=== PATIENT | male | born 1975 | race Caucasian/White ===

== ENCOUNTER → 2018-10-05 | Outpatient (REF) | payer OTHER, MEDICAID | LOC: M SMT 18:57 | PROVIDERS: ATTEND Specialist | DX: Z30.09 Encounter for other general counseling and advice on contraception (principal) ==

== ENCOUNTER → 2019-02-08 | Outpatient (REF) | payer OTHER, MEDICAID ==
[2019-02-08 13:31] LABS: SEMEN APPEARANCE OPAQUE (OPAQUE); SEMEN VISCOSITY VISCOUS (LIQUID); SEMEN VOLUME 3.8 ml (2.0-5.0); SEMEN pH 8.5 (7.0-8.0)
[2019-02-08 13:32] LABS: WBC CONCENTRATION <=1 M/ml (<=1 M/ml)
== END ==
LOC: M SMT 12:07
PROVIDERS: ATTEND Specialist
DX: Z30.09 Encounter for other general counseling and advice on contraception (principal)